=== PATIENT | female | born 1985 | race Caucasian/White ===

== ENCOUNTER → 2019-03-27 | Outpatient (CLI) | payer BC | LOC: RAD 18:05 | PROVIDERS: ATTEND Nurse Practitioner Family | DX: M54.31 Sciatica, right side (principal); R10.2 Pelvic and perineal pain; W18.39XA Other fall on same level, initial encounter; Z53.8 Procedure and treatment not carried out for other reasons ==

== ENCOUNTER → 2019-03-28 | Outpatient (CLI) | payer BC ==
--- NOTE | 2019-03-28 12:03 | Diagnostic Imaging Report ---
INDICATION: Pain in low back, right-sided sciatica due to an injury. TECHNIQUE: AP, Lateral and Spot imaging of the lumbar spine CORRELATION STUDY: None FINDINGS: The lumbar spinal curvature and alignment are within normal limits. Vertebral body heights and disc spaces are maintained. No fracture or malalignment is seen. IMPRESSION: No radiographic evidence for acute bony abnormality of the lumbar spine. Dictated by: Dictated on workstation # [id number]
--- NOTE | 2019-03-28 12:32 | Diagnostic Imaging Report ---
EXAMINATION: Pelvis at 11:50 a.m. INDICATION: Pelvic pain. A single AP view of the pelvis was obtained. There are no prior studies available for comparison. FINDINGS: There is no fracture, dislocation, or acute bony abnormality evident. There is perhaps mild deformity of the pubic symphysis on the left. This could be a sequela of previous trauma. Correlation with the patient's history would be recommended. The hip and sacroiliac joints are well maintained. The soft tissues are unremarkable. IMPRESSION: 1. There is no evidence for an acute bony abnormality. 2. There is a question of prior trauma to the pubic symphysis on the left. Clinical followup is recommended. Dictated by: Dictated on workstation # [id number]
== END ==
LOC: RAD FS 11:28
PROVIDERS: ATTEND Nurse Practitioner Family
DX: S39.92XA Unspecified injury of lower back, initial encounter (principal); R10.2 Pelvic and perineal pain; W18.39XA Other fall on same level, initial encounter
CPT/HCPCS: 72100; 72170

== ENCOUNTER → 2019-04-03 | Outpatient (CLI) | payer BC ==
--- NOTE | 2019-04-03 16:38 | Diagnostic Imaging Report ---
PROCEDURE: MRI lumbar spine. TECHNIQUE: Multiplanar, multisequence MRI of the lumbar spine was performed without contrast. INDICATION: Back pain. FINDINGS: The alignment of the lumbar spine is normal. The vertebral body heights are well maintained. There is no spondylolysis or spondylolisthesis. No fractures are identified. Conus medullaris is seen at L1 and is normal in appearance. All of the lumbar discs are normal in height, signal intensity, and morphology. There is no focal disc extrusion or evidence of high-grade spinal stenosis. There is a heterogeneous lesion in the right iliac bone which is incompletely visualized on this exam. The aorta is nonaneurysmal. Kidneys are normal in appearance IMPRESSION: Heterogeneous marrow-replacing lesion in the medial aspect of the right iliac bone which is incompletely visualized on this exam. This measures approximately 4.9 x 1.8 cm. Please correlate with the formal MRI pelvis which is also done on the same date. Unremarkable MRI lumbar spine. Dictated by: Dictated on workstation # [id number]
--- NOTE | 2019-04-03 20:38 | Diagnostic Imaging Report ---
EXAMINATION: Magnetic resonance imaging of the pelvis and bilateral hips without contrast DATE: April 03, 2019. COMPARISON: Radiograph of the pelvis, March 28, 2019. INDICATION: 33-year-old female, low back, pelvic and right leg pain. History of recent injury. TECHNIQUE: Magnetic Resonance Imaging sequences were performed of the pelvis and bilateral hips without contrast. TENDONS AND MUSCLES: The gluteus maxx muscles and their origins and insertions are intact, bilaterally. The tendons and muscles of the greater trochanter - gluteus minimus, piriformis and gluteus medius - are intact, bilaterally. Both common hamstring attachments on the ischial tuberosities are intact and the extensor muscles of the thigh are intact. The visualized portions of the flexors and adductor muscles of the thigh and their attachments on the pelvis and hips are intact. Both iliopsoas and iliacus muscles are intact. The bilateral iliopsoas tendons are intact. The piriformis muscles are symmetric in size and unremarkable in signal. HIPS AND SACROILIAC JOINTS: The contours of the femoral heads and acetabuli are smooth and symmetric. There is no hip joint effusion. There is no identified fluid-filled labral tear or paralabral cyst. The sacroiliac joints are unremarkable. LUMBAR SPINE: The visible portions of the lumbar spine are unremarkable on limited assessment. BONE: There is a T1 hypointense and T2 hyperintense lesion involving the right iliac bone with extension into the adjacent soft tissues which measures 4.6 x 1.9 x 4.8 cm in size. There are additional more T2 hyperintense well-demarcated lesions involving the upper aspect of the right iliac bone with the lesion on axial T2 fat saturation sequence image 2 measuring 1.4 x 0.6 x 0.8 cm in size and the additional lesion on axial T2 fat saturation sequence image 4, measuring 2.0 x 0.7 x 1.0 cm in size. There is no adjacent marrow edema. There is no acute fracture. There is no evidence of osteonecrosis. BURSAE AND SOFT TISSUES: The bursae and soft tissues surrounding the pelvis and hips are within normal limits. IMPRESSION: 1. Bone lesion of the right iliac bone with associated extension into the soft tissues measuring 4.6 x 1.9 x 4.8 cm in size. This is concerning for potential malignancy, metastatic disease or myeloma. 2. Additional T2 hyperintense lesions involving the right iliac bone without clear soft tissue extension of these lesions. These are indeterminant. 3. Additional musculoskeletal evaluation at the level of the pelvis and bilateral hips is unremarkable. 4. For further evaluation of the bone lesions of the right iliac bone, pre and post contrast MRI and/or CT pelvis without contrast is recommended for further evaluation. Dictated by: Dictated on workstation # [id number]
== END ==
LOC: RAD 12:22
PROVIDERS: ATTEND Nurse Practitioner Family
DX: M89.9 Disorder of bone, unspecified (principal); M54.31 Sciatica, right side; R01.1 Cardiac murmur, unspecified; W18.39XA Other fall on same level, initial encounter
CPT/HCPCS: 72148; 72195

== ENCOUNTER → 2019-04-07 | Outpatient (CLI) | payer BC ==
--- NOTE | 2019-04-07 10:34 | Diagnostic Imaging Report ---
PROCEDURE: CT lumbar spine without contrast. TECHNIQUE: Multiple contiguous axial images were obtained through the lumbar spine without the use of intravenous contrast. Sagittal and coronal reformations were then performed. Auto Exposure Controls were utilized during the CT exam to meet ALARA standards for radiation dose reduction. INDICATION: A right iliac lesion noted on recent MRI. This study is performed for further evaluation. FINDINGS: Curvature and alignment of the lumbar spine is normal. Vertebral body heights are maintained. Disc spaces are preserved. No acute fracture is seen. The right iliac bone lesion is only partially included on this study. Please see dedicated CT pelvis exam for further characterization. Visualized sacrum is unremarkable. No paraspinous mass is detected. IMPRESSION: Unremarkable CT of the lumbar spine. No acute bony abnormality is detected. The marrow replacing lesion in the right iliac bone noted on recent MRI is only minimally included on this exam. Please see dedicated CT pelvis report for further characterization. Dictated by: Dictated on workstation # [id number]
--- NOTE | 2019-04-07 10:50 | Diagnostic Imaging Report ---
PROCEDURE: CT pelvis without contrast. TECHNIQUE: Multiple contiguous axial images were obtained through the pelvis without the use of intravenous contrast. Sagittal and coronal reformations were performed. Auto Exposure Controls were utilized during the CT exam to meet ALARA standards for radiation dose reduction. DATE: April 07, 2019. INDICATION: 33-year-old female, evaluation of iliac bone lesion seen on recent MRI. History of low back, pelvic, and right leg pain. COMPARISON: MRI pelvis April 03, 2019. Pelvic radiograph March 28, 2019. FINDINGS: Involving the superior aspect of the right iliac bone on axial image 11 and adjacent sequential images, there is a lytic bone lesion which measures 4.9 x 2.3 cm in axial extent and has a craniocaudal extent of 4.5 cm. There is cortical expansion and thinning with areas of loss of the normal lateral cortex of the right iliac bone at the level of the lesion. There is internal soft tissue attenuation. There is no chondroid or osseous or groundglass matrix. There is no pathologic fracture. The additional previously noted T2 hyperintense lesions of the right iliac bone on recent MRI are much more difficult to appreciate on CT although do appear to be visualized and unchanged in size on axial image 8. These lesions do not demonstrate cortical expansion or breakthrough. There is no identified acute fracture. There are sutures noted in the left pelvis. There is no identified free pelvic fluid. There is a moderate amount of stool in the right colon. There is no identified abnormally enlarged lymph node in the pelvis specifically meeting CT size criteria for adenopathy. The hip joints are unremarkable in appearance. IMPRESSION: 1. Limited lesion of the right superior iliac bone measuring 4.9 x 2.3 x 4.5 cm with cortical expansion and areas of loss of the lateral cortex of the right iliac bone at the level of the bone lesion which does have soft tissue extension. There is no internal chondroid, osteoid, or groundglass matrix. This lesion is nonspecific. Differential diagnostic considerations at this time would include metastatic disease, myeloma, or potentially a benign bone lesion or primary malignant lesion of bone. Orthopedic oncologic consultation and biopsy for definitive diagnosis is recommended. 2. Additional T2 hyperintense right iliac bone lesions better seen on prior MRI are not overtly aggressive in appearance although are still indeterminate. Dictated by: Dictated on workstation # [id number]
== END ==
LOC: RAD FS 09:46
PROVIDERS: ATTEND Nurse Practitioner Family
DX: M89.8X8 Other specified disorders of bone, other site (principal); R22.41 Localized swelling, mass and lump, right lower limb; R10.2 Pelvic and perineal pain; M54.41 Lumbago with sciatica, right side; W18.39XD Other fall on same level, subsequent encounter; R01.1 Cardiac murmur, unspecified
CPT/HCPCS: 72131; 72192

== ENCOUNTER 2019-09-07 21:45 | Observation (INO) | payer BC ==
[~2019-09-07] VITALS: Ht 162.6 cm; Wt 50.0 kg
--- NOTE | 2019-09-07 23:07 | ED EENT ---
History of Present Illness General Chief Complaint: Eye Problems Stated Complaint: BLATERAL EYE PROBLEM Nursing Triage Note: PT AMBULATE TO ROOM FS02 WITH C/O RIGHT EYE INFECTION. PT STATES SHE WAS SEEN AT HER EYE DR AND GIVEN IM INJECTION ABX AND PRESCRIPTION. PT REPORTS SHE THINGS THE INFECTION IS GETTING WORSE AND IS MOVING INTO HER SINUSES. Source: patient History of Present Illness Date Seen by Provider: Sep 07, 2019 Time Seen by Provider: 23:06 Initial Comments 34 yo F presenting with complaint of increasing pain and swelling with erythema to right eyelids and face. She started with this on and it has progressed since then. She was seen in clinic and started on antibiotics for eyelid infection. Then she saw Dr. Nina for optometry. Today she was seen with urgent care and they gave her a antibiotic shot this morning. Despite the Keflex and the shot this morning she feels the redness/swelling and pain has progressed. It is getting more swollen and she feels like she has increased pain extending down more towards her sinuses even now. The redness which started just on her right eye now has a small swollen spot on her left thigh on the lower eyelid. She states that she has had something similar in the past that required her to have IV antibiotics and be admitted because she wasn't responding to the oral antibiotics. She was concerned that she would need IV antibiotics again since it seems to be worsening despite taking keflex for over 3 days and not improving, but worsening instead. She also is concerned that maybe she might have MRSA or staph infection because she recently had a hip surgery and is going through physical therapy. It was shortly after physical therapy when she noticed the redness, pain and swelling to her right eyelid. She denies having any fever or chills. She just feels like she has increasing pain and pressure especially around the right eye and the sinuses Allergies and Home Medications Allergies Coded Allergies: cefaclor (Unverified Allergy, Severe, 09/08/19) severe bruising all over her body. Has taken Cephalexin and Ceftriaxone without reaction. doxycycline (Unverified Allergy, Unknown, 09/07/19) iodine (Unverified Allergy, Unknown, 09/08/19) reports seizures after IV contrast dye for CT scan prochlorperazine (Unverified Allergy, Unknown, 09/07/19) promethazine (Unverified Allergy, Unknown, 09/07/19) tramadol (Unverified Allergy, Unknown, 09/07/19) Patient Home Medication List Home Medication List Reviewed: Yes Review of Systems Review of Systems Constitutional: No chills, No fever; malaise Eyes: Denies Blurred Vision, Denies Drainage, Denies Decreased Acuity, Denies Foreign Body Sensation; Inflammation (to right eyelids with swelling, redness and pain), Pain (right eyelids); Denies Photophobia, Denies Vision Changes Ears: No Symptoms Reported Nose: no symptoms reported Mouth: no symptoms reported Throat: no symptoms reported Respiratory: no symptoms reported Cardiovascular: no symptoms reported Gastrointestinal: no symptoms reported Musculoskeletal: no symptoms reported Skin: see HPI, change in color (erythema with swelling and pain spreading around the right eyelids and over the sinus on the right. 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 oz. kg; 18.00 BMI Method: General Appearance: mild distress, thin Eyes: right eye lid inflammation (with swelling, redness and pain to palpation); bilateral eye PERRL, bilateral eye EOMI Nose: sinus tenderness (right greater than left maxillary sinuses) Mouth/Throat: normal mouth inspection Neck: non-tender, full range of motion, supple, normal inspection Cardiovascular: normal peripheral pulses, regular rate, rhythm Respiratory: chest non-tender, lungs clear, normal breath sounds Skin: warm/dry, other (erythema to right eyelids and periorbital area with tenderness to palpation) Progress/Results/Core Measures Results/Orders Lab Results Laboratory Tests Test 09/07/19 23:43 Range/Units White Blood Count 7.1 4.3-11.0 10^3/uL Red Blood Count 5.25 4.35-5.85 10^6/uL Hemoglobin 14.2 11.5-16.0 G/DL Hematocrit 44 35-52 % Mean Corpuscular Volume 85 80-99 FL Mean Corpuscular Hemoglobin 27 25-34 PG Mean Corpuscular Hemoglobin Concent 32 32-36 G/DL Red Cell Distribution Width 12.1 10.0-14.5 % Platelet Count 231 130-400 10^3/uL Mean Platelet Volume 11.0 H 7.4-10.4 FL Neutrophils (%) (Auto) 59 42-75 % Lymphocytes (%) (Auto) 31 12-44 % Monocytes (%) (Auto) 7 0-12 % Eosinophils (%) (Auto) 2 0-10 % Basophils (%) (Auto) 1 0-10 % Neutrophils # (Auto) 4.2 1.8-7.8 X 10^3 Lymphocytes # (Auto) 2.2 1.0-4.0 X 10^3 Monocytes # (Auto) 0.5 0.0-1.0 X 10^3 Eosinophils # (Auto) 0.1 0.0-0.3 10^3/uL Basophils # (Auto) 0.1 0.0-0.1 10^3/uL Sodium Level 141 135-145 MMOL/L Potassium Level 4.0 3.6-5.0 MMOL/L Chloride Level 100 98-107 MMOL/L Carbon Dioxide Level 27 21-32 MMOL/L Anion Gap 14 5-14 MMOL/L Blood Urea Nitrogen 8 7-18 MG/DL Creatinine 1.03 0.60-1.30 MG/DL Estimat Glomerular Filtration Rate > 60 BUN/Creatinine Ratio 8 Glucose Level 94 70-105 MG/DL Lactic Acid Level 0.96 0.50-2.00 MMOL/L Calcium Level 9.8 8.5-10.1 MG/DL Corrected Calcium 8.5-10.1 MG/DL Total Bilirubin 0.2 0.1-1.0 MG/DL Aspartate Amino Transf (AST/SGOT) 23 5-34 U/L Alanine Aminotransferase (ALT/SGPT) 12 0-55 U/L Alkaline Phosphatase 77 40-136 U/L C-Reactive Protein 0.17 <0.50 MG/DL Total Protein 8.2 6.4-8.2 GM/DL Albumin 5.1 H 3.2-4.5 GM/DL My Orders Orders - CHARLA SIMMONS MD Comprehensive Metabolic Panel (09/07/19 23:39) Ed Iv/Invasive Line Start (09/07/19 23:39) Cbc With Automated Diff (09/07/19 23:39) Ct Maxillofacial Wo (09/07/19 23:39) Blood Culture (09/07/19 23:39) Lactic Acid Analyzer (09/07/19 23:39) Crp Fs (09/07/19 23:41) Vancomycin Injection (Vancomycin Injecti (09/07/19 23:41) Ketorolac Injection (Toradol Injection) (09/07/19 23:41) Vancomycin Injection (Vancomycin Injecti (09/07/19 23:45) Ns (Ivpb) (Sodium Chloride 0.9%) (09/07/19 23:46) Vital Signs/I&O 09/07/19 22:01 Temp 37.0 Pulse 95 Resp 14 B/P (MAP) 111/48 (69) O2 Delivery Room Air Blood Pressure Mean: 69 Progress Progress Note #1: Progress Note This does not appear to be a periorbital cellulitis on exam but with her complaint of worsening pain and swelling despite antibiotic will check labs with lactic acid and perform CT scan to evaluate for fluid collection or sinusitis extension of infection or disease. Try a dose of toradol for pain and obtain blood cultures with lactic acid for further evaluation for possible sepsis vs worsening infection despite antibiotics. Progress Note #2: Progress Note Labs all appear stable without elevation of WBC count. No left shift on differential. Chemistry is stable with normal Lactic acid, CRP. CT scan came back showing mild right preseptal soft tissue swelling with possible preseptal cellulitis without post septal extension. Since she is failing out patient treatment and has worsened on oral antibiotics and she has recent hospital stay with surgery and risk for MRSA will check about possible admit for IV antibiotics until showing improvement. Progress Note #3: Progress Note d/w Dr. Fabian for hospitalist service and he accepted for admit. 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 Diagnostic Imaging Diagonstic Imaging: CT Plain Films/CT/US/NM/MRI: facial bones Comments Impression: Mild Right Preseptal soft tissue swelling, possible preseptal cellulitis without post septal extension. Reviewed: Reviewed [facility] Study Departure Communication (Admissions) Time/Spoke to Admitting Phy: 01:[address] Fabian for the hospitalist service since the patient follows with Dr. Phillip and is unassigned for the purposes of [facility]. Since she has failed outpatient oral therapy and has worsening symptoms will admit for IV antibiotics while she still just has preseptal cellulitis and try to avoid her having further worsening symptoms into a periorbital cellulitis. Based on recommendations from the online reference up-to-date will give IV vancomycin and ceftriaxone. Impression Primary Impression: Preseptal cellulitis of right eye Additional Impression: Failure of outpatient treatment Disposition: ADMITTED INPATIENT Condition: Stable Admissions Decision to Admit Reason: Admit from ER (General) Decision to Admit/Date: Sep 08, 2019 Time/Decision to Admit Time: 01:42 Departure-Patient Inst. Referrals: NO,LOCAL PHYSICIAN (PCP/Family) Primary Care Physician Images Head/Face 1 - Cellulitis (erythema and swelling with tenderness to right eyelids and surrounding tissues), Swelling (mild), Tenderness CHARLA SIMMONS MD Sep 07, 2019 23:06
[2019-09-07] MEDS ORDERED: KETOROLAC 30 MG/ML VIAL IVP STA (23:41)
[2019-09-07] MEDS ORDERED: VANCOMYCIN INJECTION 1,000 MG in NS (IVPB) 250 ML IV STA (23:41)
[2019-09-07] MEDS ORDERED: VANCOMYCIN 1000 MG/VIAL ONE (23:45)
[2019-09-07] MEDS ORDERED: NS (IVPB) 250 ML ONE (23:46)
[2019-09-07 23:52] LABS: BASOPHILS # (AUTO) 0.1 10^3/uL (0.0-0.1); BASOPHILS % (AUTO) 1 % (0-10); EOSINOPHILS # (AUTO) 0.1 10^3/uL (0.0-0.3); EOSINOPHILS % (AUTO) 2 % (0-10); HEMATOCRIT 44 % (35-52); HEMOGLOBIN 14.2 G/DL (11.5-16.0); LYMPHOCYTES # (AUTO) 2.2 X 10^3 (1.0-4.0); LYMPHOCYTES % (AUTO) 31 % (12-44); MEAN CORPUSCULAR HEMOGLOBIN 27 PG (25-34); MEAN CORPUSCULAR HGB CONC 32 G/DL (32-36); MEAN CORPUSCULAR VOLUME 85 FL (80-99); MONOCYTES # (AUTO) 0.5 X 10^3 (0.0-1.0); MONOCYTES % (AUTO) 7 % (0-12); NEUTROPHILS # (AUTO) 4.2 X 10^3 (1.8-7.8); NEUTROPHILS % (AUTO) 59 % (42-75); PLATELET COUNT 231 10^3/uL (130-400); RED CELL DISTRIBUTION WIDTH 12.1 % (10.0-14.5); WHITE BLOOD COUNT 7.1 10^3/uL (4.3-11.0)
[2019-09-08 00:12] LABS: BUN/CREATININE RATIO 8; CARBON DIOXIDE 27 MMOL/L (21-32); CHLORIDE 100 MMOL/L (98-107); CREATININE SERUM 1.03 MG/DL (0.60-1.30); GFR ESTIMATED > 60; SODIUM 141 MMOL/L (135-145)
[2019-09-08 00:13] LABS: ALANINE AMINOTRANSFERASE 12 U/L (0-55); ALBUMIN 5.1 GM/DL (3.2-4.5); ALKALINE PHOSPHATASE 77 U/L (40-136); BILIRUBIN,TOTAL 0.2 MG/DL (0.1-1.0); CALCIUM 9.8 MG/DL (8.5-10.1); GLUCOSE 94 MG/DL (70-105); TOTAL PROTEIN 8.2 GM/DL (6.4-8.2)
[2019-09-08 03:25] VITALS: BP 100/55
--- NOTE | 2019-09-08 03:25 | NUR ---
GERARDO WILLIAM admitted to room 409-1, with an admitting diagnosis of CELLULITIS OF FACE, on 09/08/19 from ED via EMS, accompanied by EMS STAFF. GERARDO WILLIAM introduced to surroundings, call light, bed controls, phone, TV, temperature control, lights, meal times, smoking policy, visitor policy, side rail policy, bathrooms and showers. Patient Rights given to patient in the handbook. GERARDO WILLIAM verbalizes understanding that [facility] is not responsible for the loss or damage to any personal effects or valuables that are kept in the patients posession during their hospitalization. Patient Care Plan wAS discussed with the PT. GERARDO WILLIAM verbalizes understanding of Interdisciplinary Patient Education. Patient and/or family were informed about the Rapid Response Team and its purpose.
--- NOTE | 2019-09-08 06:22 | Diagnostic Imaging Report ---
PROCEDURE: CT maxillofacial without contrast. TECHNIQUE: Multiple contiguous axial images were obtained through the facial bones without the use of intravenous contrast. Auto Exposure Controls were utilized during the CT exam to meet ALARA standards for radiation dose reduction. INDICATION: Eye infection There is edema and/or inflammation involving the preseptal right orbit. The globes appear to be intact and there is no evidence of post septal inflammation or fluid collection. There is no evidence of bone destruction. The visualized paranasal sinuses are clear apart from probable mucus retention cyst or polyp in the floor of the left maxillary sinus. There is no paranasal sinus air-fluid level. Temporomandibular joints are unremarkable. IMPRESSION: Preseptal right orbital cellulitis without evidence of intra-ocular or post septal extension. Otherwise, there is a small mucous retention cyst or polyp in the left maxillary sinus without other complicating feature identified. Dictated by: Dictated on workstation # [id number]
--- NOTE | 2019-09-08 07:13 | NUR ---
PTD VANCOMYCIN LABS: SCR 1.03 WT 50KG PLAN: VANCOMYCIN 1 GRAM GIVEN IN ED 09/07 @ 2350, WILL START 15MG/KG IV Q8HRS (750MG) NEXT DOSE DUE NOW, PLAN TO CHECK A TROUGH LEVEL ON 09/09 @ 0500.
[2019-09-08 07:35] VITALS: BP 91/52
[2019-09-08] MEDS: VANCOMYCIN 750 MG/NS 250 ML IVPB IV SCH ×6 (08:15→22:01)
[2019-09-08] MEDS: cefTRIAXone 2,000 MG/SWFI 20 ML IV PUSH IV SCH ×2 (08:16)
[2019-09-08] MEDS ORDERED: IBUP-2055 PO (08:18)
[2019-09-08] MEDS ORDERED: CEPH500T PO (08:18)
[2019-09-08] MEDS ORDERED: CYAN250010 PO (08:18)
[2019-09-08] MEDS: KETOROLAC 15 MG/ML VIAL IVP PRN ×3 (08:36→22:01)
--- NOTE | 2019-09-08 08:46 | NUR ---
SPOKE WITH THE PT WELL CALLING [facility] IN [facility] TO COMPLETE THE MED REC. THE PT SAYS SHE DOES NOT TAKE ANY PRESCRIPTION MEDICATION, EXCEPT THE ANTIBIOTIC SHE WAS PRESCRIBED ON Sunday09-05-2019. SHE RECEIVED CEPHALEXIN #12 6 D/S- SHE WAS PRESCRIBED #20 HOWEVER THE PT WAS PAYING [facility] AND JUST GOT A SHORT TERM SUPPLY OTC MEDS: IBUPROFEN VIT B12
[2019-09-08 11:19] VITALS: BP 95/56
--- NOTE | 2019-09-08 11:39 | History & Physical-Hospitalist ---
[facility] 09/08/19 1139: History of Present Illness HPI/Chief Complaint Rsoa is a 34 year old female that presented to [facility] due to pain on the right side of her face and into her eye. She states the pain started last and continue to get worse and was really bad on Sunday. She was seen in clinic and the urgent care for this and was provided antibiotics which have not helped. Currently her pain is a 5-6/10 and she describes it as constant. The pain radiates to the forehead and to the right ear. She states the medication for pain has helped and nothing that she knows makes it worse. She states she had a infection doue to wisdom tooth removal in hali past but nothing like this before. Blood cultures are pending and CT shows Preseptal right orbital cellulitis without evidence of intraocular or post septal extension. Source: patient Date Seen 09/08/19 Attending Physician Dinah Fabian MD PCP No,Local Physician Referring Physician Date of Admission Sep 08, 2019 at 02:24 Home Medications & Allergies Home Medications Reviewed patient Home Medication Reconciliation performed by pharmacy medication reconciliations brewing technician and/or nursing. Patients Allergies have been reviewed. Allergies Allergies Coded Allergies cefaclor (Unverified Allergy, Severe, 09/08/19) severe bruising all over her body. Has taken Cephalexin and Ceftriaxone without reaction. doxycycline (Unverified Allergy, Unknown, 09/07/19) iodine (Unverified Allergy, Unknown, 09/08/19) reports seizures after IV contrast dye for CT scan prochlorperazine (Unverified Allergy, Unknown, 09/07/19) promethazine (Unverified Allergy, Unknown, 09/07/19) tramadol (Unverified Allergy, Unknown, 09/07/19) Past Myklksf-Wjaxjd-Cavgqo Hx Past Med/Social Hx: Reviewed Nursing Past Med/Soc Hx Patient Social History Alcohol Use: Denies Use Recreational Drug Use: No Smoking Status: Never a Smoker 2nd Hand Smoke Exposure: No Recent Foreign Travel: No Contact w/other who traveled: No Recent Hopitalizations: No Recent Infectious Disease Expo: No Immunizations Up To Date Date of Pneumonia Vaccine: Aug 10, 2012 Seasonal Allergies Seasonal Allergies: No Past Medical History Surgeries: Hysterectomy, 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) Reproductive: Yes Female Reproductive Disorders: Endometriosis Hysterectomy (due to Endometriosis) History of Blood Disorders: No Review of Systems Constitutional: no symptoms reported EENTM: eye pain (right side), nose pain Respiratory: no symptoms reported Cardiovascular: no symptoms reported Gastrointestinal: no symptoms reported Genitourinary: no symptoms reported Musculoskeletal: no symptoms reported Skin: other (Erythema of the right eye ) Psychiatric/Neurological: No Symptoms Reported Physical Exam Physical Exam Vital Signs Vital Signs - First Documented 09/07/19 09/08/19 22:01 02:40 Temp 37.0 Pulse 95 Resp 14 B/P (MAP) 111/48 (69) Pulse Ox 100 O2 Delivery Room Air Capillary Refill : Less Than 3 SecondsLess Than 3 Seconds Height, Weight, BMI Height: '" Weight: lbs. oz. kg; 18.91 BMI Method: General Appearance: No Apparent Distress, WD/WN Eyes: Right Eye Lid Inflammation, Right Eye Photophobia; Bilateral Eye PERRL, Bilateral Eye EOMI HEENT: PERRL/EOMI Neck: Full Range of Motion, Non Tender, Supple Respiratory: Chest Non Tender, No Accessory Muscle Use, No Respiratory Distress Cardiovascular: Regular Rate, Rhythm, No Edema, Normal Peripheral Pulses Gastrointestinal: Normal Bowel Sounds, Non Tender; No Distended, No Guarding Extremity: Normal Capillary Refill, No Calf Tenderness, No Pedal Edema Neurologic/Psychiatric: Alert, Oriented x3, Normal Mood/Affect, carpenter mold II-XII Norm as Tested Skin: Normal Color, Warm/Dry Lymphatic: No Adenopathy Results Results/Procedures Labs Laboratory Tests 09/07/19 23:43 Patient resulted labs reviewed. Assessment/Plan Admission Diagnosis Preseptal Right Orbital Cellulitis - Outpatient therapy failed - Ceftriaxone 2g Q24hrs - Vancomycin 750mg Q8hrs - Vancomycin trough pending - blood cultures pending - Continue pain management Patient failed out patient therapy and infection has progressed. Will continue to monitor patients infection on current regimen. Waiting for blood cultures. Pain is being managed on Ketorlac. Assessment and Plan Preseptal Right Orbital Cellulitis - Outpatient therapy failed - Ceftriaxone 2g Q24hrs IV - Vancomycin 750mg Q8hrs IV - Vancomycin trough pending - blood cultures pending - Continue pain management Patient failed out patient therapy and infection has progressed. Will continue to monitor patients infection on current regimen. Waiting for blood cultures. Pain is being managed on Ketorlac 15mg Q6H PRN . Clinical Quality Measures DVT/VTE Risk/Contraindication: Risk Factor Score Per Nursin RFS Level Per Nursing on Admit: 1=Low/No VTE PPX KIMBERLEE HO MD 09/08/19 8798: History of Present Illness Time Seen by a Provider: 11:30 Past Rafniye-Qrfjbg-Gjkvek Hx Past Med/Social Hx: Reviewed Nursing Past Med/Soc Hx Patient Social History Alcohol Use: Denies Use Recreational Drug Use: No Smoking Status: Never a Smoker Past Medical History Hysterectomy Family History Reviewed Nursing Family Hx No Pertinent Family Hx Assessment/Plan Admission Diagnosis Will continue on current antibiotics, Vanc/Rocephin. Responding but slowly. Denies previous episodes. Will continue inpatient status until at least blood cultures preliminarily are negative. Admission Status: Inpatient Order (span 2 midnights) Reason for Inpatient Admission: IV abx, failed outpatient management Diagnosis/Problems Diagnosis/Problems (1) Preseptal cellulitis of right eye Status: Acute (2) Failure of outpatient treatment Status: Acute Supervisory-Addendum Brief Verification & Attestation Participated in pt care: history, MDM, physical Personally performed: exam, history, MDM, supervision of care Care discussed with: Medical Student Procedures: n/a Results interpretation: Verified all documentation Verification and Attestation of Medical Student E/M Service A medical student performed and documented this service in my presence. I reviewed and verified all information documented by the medical student and made modifications to such information, when appropriate. I personally performed the physical exam and medical decision making. Kimberlee Ho, Sep 08, 2019,16:47 [facility] Sep 08, 2019 11:39 KIMBERLEE HO MD Sep 08, 2019 16:48
[2019-09-08] MEDS ORDERED: VANCOMYCIN 1 GM/NS 250 ML IVPB IV SCH ×2 (11:45)
[2019-09-08 16:30] VITALS: BP 93/51
[2019-09-08 19:55] VITALS: BP 88/52
[2019-09-09] VITALS: BP 86/48
[2019-09-09 04:00] VITALS: BP 92/58
[2019-09-09] MEDS ORDERED: TROUGH ORDER-PHARMACY XX ONE (05:00)
[2019-09-09 05:44] LABS: BASOPHILS % (AUTO) 1 % (0-10); EOSINOPHILS # (AUTO) 0.1 10^3/uL (0.0-0.3); EOSINOPHILS % (AUTO) 3 % (0-10); HEMATOCRIT 35 % (35-52); HEMOGLOBIN 10.9 G/DL (11.5-16.0); LYMPHOCYTES # (AUTO) 2.2 X 10^3 (1.0-4.0); LYMPHOCYTES % (AUTO) 49 % (12-44); MEAN CORPUSCULAR HEMOGLOBIN 26 PG (25-34); MEAN CORPUSCULAR HGB CONC 32 G/DL (32-36); MEAN CORPUSCULAR VOLUME 84 FL (80-99); MEAN PLATELET VOLUME 11.1 FL (7.4-10.4); MONOCYTES # (AUTO) 0.4 X 10^3 (0.0-1.0); MONOCYTES % (AUTO) 9 % (0-12); NEUTROPHILS # (AUTO) 1.7 X 10^3 (1.8-7.8); NEUTROPHILS % (AUTO) 38 % (42-75); PLATELET COUNT 182 10^3/uL (130-400); RED CELL DISTRIBUTION WIDTH 12.3 % (10.0-14.5); WHITE BLOOD COUNT 4.4 10^3/uL (4.3-11.0)
[2019-09-09 05:56] LABS: ALANINE AMINOTRANSFERASE 8 U/L (0-55); ALBUMIN 3.7 GM/DL (3.2-4.5); ALKALINE PHOSPHATASE 50 U/L (40-136); BILIRUBIN,TOTAL 0.3 MG/DL (0.1-1.0); BUN/CREATININE RATIO 10; CALCIUM 8.9 MG/DL (8.5-10.1); CARBON DIOXIDE 22 MMOL/L (21-32); CHLORIDE 112 MMOL/L (98-107); CREATININE SERUM 0.94 MG/DL (0.60-1.30); GFR ESTIMATED > 60; GLUCOSE 88 MG/DL (70-105); POTASSIUM 4.3 MMOL/L (3.6-5.0); SODIUM 143 MMOL/L (135-145); TOTAL PROTEIN 5.6 GM/DL (6.4-8.2)
[2019-09-09 06:05] LABS: VANCOMYCIN,TROUGH 26.4 UG/ML (10.0-20.0)
[2019-09-09] MEDS: VANCOMYCIN 750 MG/NS 250 ML IVPB IV SCH ×2 (06:17)
--- NOTE | 2019-09-09 07:02 | NUR ---
PTD VANCOMYCIN LABS: 0.94 VANCOMYCIN TROUGH 09/09 @ 0522 26.4 PLAN: HOLD VANCOMYCIN, RESTART TONIGHT AT 2099 AND CHANGE FREQUENCY TO BID (750MG IV @). RECHECK A LEVEL ON 09/11/19.
[2019-09-09 08:00] VITALS: BP 82/50
[2019-09-09] MEDS: cefTRIAXone 2,000 MG/SWFI 20 ML IV PUSH IV SCH ×2 (08:10)
[2019-09-09] MEDS: KETOROLAC 15 MG/ML VIAL IVP PRN (11:51)
[2019-09-09 12:00] VITALS: BP 90/55
[2019-09-09] MEDS ORDERED: LACTOBACILLUS ACIDOPHILUS (PROBIOTIC) CAPSULE PO SCH (12:00)
[2019-09-09] MEDS ORDERED: VANCOMYCIN 750 MG/NS 250 ML IVPB IV NR ×2 (12:29)
--- NOTE | 2019-09-09 12:51 | Discharge Summary ---
[facility] 09/09/19 1251: Diagnosis/Chief Complaint Date of Admission Sep 08, 2019 at 02:24 Date of Discharge Admission Diagnosis Will continue on current antibiotics, Vanc/Rocephin. Responding but slowly. Denies previous episodes. Will continue inpatient status until at least blood cultures preliminarily are negative. Primary Care No,Local Physician Discharge Diagnosis (1) Preseptal cellulitis of right eye Status: Acute (2) Failure of outpatient treatment Status: Acute Discharge Summary Discharge Physical Exam Allergies: Coded Allergies: cefaclor (Unverified Allergy, Severe, 09/08/19) severe bruising all over her body. Has taken Cephalexin and Ceftriaxone without reaction. doxycycline (Unverified Allergy, Unknown, 09/07/19) iodine (Unverified Allergy, Unknown, 09/08/19) reports seizures after IV contrast dye for CT scan prochlorperazine (Unverified Allergy, Unknown, 09/07/19) promethazine (Unverified Allergy, Unknown, 09/07/19) tramadol (Unverified Allergy, Unknown, 09/07/19) Vitals & I&Os Vital Signs Date Time Temp Pulse Resp B/P (MAP) Pulse Ox O2 Delivery O2 Flow Rate FiO2 09/09/19 12:00 37.4 72 16 90/55 (67) 98 Room Air General Appearance: No Apparent Distress, Thin HEENT: Photophobia (Improved ), Other (Right Ocular inflammation adn erythema has improved. Pt is able to open her eye more and has decreased pain with EOM. ) Respiratory: Chest Non Tender, Normal Breath Sounds, No Accessory Muscle Use, No Respiratory Distress Cardiovascular: Regular Rate, Rhythm, No Edema, Normal Peripheral Pulses Gastrointestinal: Normal Bowel Sounds, Non Tender, Soft; No Distended, No Guarding Extremity: Normal Capillary Refill, No Calf Tenderness, No Pedal Edema Skin: Normal Color, Warm/Dry Neurologic/Psychiatric: Alert, Oriented x3, Normal Mood/Affect, silo man II-XII Norm as Tested Hospital Course Was the Problem List Reviewed?: Yes Rosa was admitted to [facility] on 09/07/19 and is being discharged today 09/09/19. She was admitted for Preseptal Orbital Cellulitis due to failed outpatient treatment. No pertinent PMH. She was under the care of Dr. Ho hospitalist. While at [facility] she received a CT of the head and sinus showed preseptal orbital cellulitis. She had negative blood cultures and no pertinent lab findings. Exam findings included a swollen, erythematous. She also had constant pain in the right sinus to the temporal portion and upper eyelid on the right side. There was pain with extraocular motion, decreased vision due to eye swelling and moderate to severe pain. Patient also had photophobia. The patient was started on IV vancomycin and IV Ceftriaxone. Pain control was initiated. The patient improved on the aforementioned antibiotics regimen and erythema, swelling, pain, extraocular motion have all improved. The patient is in agreement for discharge today and she will be discharged today in stable condition. The patient will be switched to oral antibiotics. Followup information and antibiotics regimen is outlined in discharge instructions. The following information is only a summary of the PT admission at [facility] and is not all inclusive. Please review entire chart for more information. Labs (last 24 hrs) Laboratory Tests 09/09/19 05:22: White Blood Count 4.4, Red Blood Count 4.13L, Hemoglobin 10.9#L, Hematocrit 35, Mean Corpuscular Volume 84, Mean Corpuscular Hemoglobin 26, Mean Corpuscular Hemoglobin Concent 32, Red Cell Distribution Width 12.3, Platelet Count 182, Mean Platelet Volume 11.1H, Neutrophils (%) (Auto) 38L, Lymphocytes (%) (Auto) 49H, Monocytes (%) (Auto) 9, Eosinophils (%) (Auto) 3, Basophils (%) (Auto) 1, Neutrophils # (Auto) 1.7L, Lymphocytes # (Auto) 2.2, Monocytes # (Auto) 0.4, Eosinophils # (Auto) 0.1, Basophils # (Auto) 0.0, Sodium Level 143, Potassium Level 4.3, Chloride Level 112H, Carbon Dioxide Level 22, Anion Gap 9, Blood Urea Nitrogen 9, Creatinine 0.94, Estimat Glomerular Filtration Rate > 60, BUN/Creatinine Ratio 10, Glucose Level 88, Calcium Level 8.9, Corrected Calcium 9.1, Total Bilirubin 0.3, Aspartate Amino Transf (AST/SGOT) 15, Alanine Aminotransferase (ALT/SGPT) 8, Alkaline Phosphatase 50, Total Protein 5.6L, Albumin 3.7, Vancomycin Level Trough 26.4*H Microbiology 09/07/19 Blood Culture - Preliminary, Resulted No growth Patient resulted labs reviewed. Pending Labs Laboratory Tests 09/09/19 05:22: White Blood Count 4.4, Red Blood Count 4.13, Hemoglobin 10.9, Hematocrit 35, Mean Corpuscular Volume 84, Mean Corpuscular Hemoglobin 26, Mean Corpuscular Hemoglobin Concent 32, Red Cell Distribution Width 12.3, Platelet Count 182, Mean Platelet Volume 11.1, Neutrophils (%) (Auto) 38, Lymphocytes (%) (Auto) 49, Monocytes (%) (Auto) 9, Eosinophils (%) (Auto) 3, Basophils (%) (Auto) 1, Neutrophils # (Auto) 1.7, Lymphocytes # (Auto) 2.2, Monocytes # (Auto) 0.4, Eosinophils # (Auto) 0.1, Basophils # (Auto) 0.0, Sodium Level 143, Potassium Level 4.3, Chloride Level 112, Carbon Dioxide Level 22, Anion Gap 9, Blood Urea Nitrogen 9, Creatinine 0.94, Estimat Glomerular Filtration Rate > 60, BUN/Creatinine Ratio 10, Glucose Level 88, Calcium Level 8.9, Corrected Calcium 9.1, Total Bilirubin 0.3, Aspartate Amino Transf (AST/SGOT) 15, Alanine Ami notransferase (ALT/SGPT) 8, Alkaline Phosphatase 50, Total Protein 5.6, Albumin 3.7, Vancomycin Level Trough 26.4 Discharge Home Medications: Active Scripts Active Reported Cephalexin 500 Mg Tablet 500 Mg PO BID PICKED UP #12 (6 DAY SUPPLY) ON 09-05-2019 Vitamin B12 (Cyanocobalamin (Vitamin B-12)) 2,500 Mcg Tablet 2,500 Mcg PO DAILY Ibuprofen 200 Mg Tablet 400 Mg PO Q6H PRN Instructions to patient/family Please see electronic discharge instructions given to patient. Clinical Quality Measures DVT/VTE Risk/Contraindication: Risk Factor Score Per Nursin RFS Level Per Nursing on Admit: 1=Low/No VTE PPX KIMBERLEE HO MD 09/09/19 1343: Diagnosis/Chief Complaint Discharge Diagnosis Preseptal Cellulitis Discharge Summary Discharge Physical Exam Allergies: Coded Allergies: cefaclor (Unverified Allergy, Severe, 09/08/19) severe bruising all over her body. Has taken Cephalexin and Ceftriaxone without reaction. doxycycline (Unverified Allergy, Unknown, 09/07/19) iodine (Unverified Allergy, Unknown, 09/08/19) reports seizures after IV contrast dye for CT scan prochlorperazine (Unverified Allergy, Unknown, 09/07/19) promethazine (Unverified Allergy, Unknown, 09/07/19) tramadol (Unverified Allergy, Unknown, 09/07/19) Discussion & Recommendations Discharge Planning: >30 minutes discharge planning Supervisory-Addendum Brief Verification & Attestation Participated in pt care: history, MDM, physical Personally performed: exam, history, MDM, supervision of care Care discussed with: Medical Student Procedures: n/a Results interpretation: Verified all documentation Verification and Attestation of Medical Student E/M Service A medical student performed and documented this service in my presence. I reviewed and verified all information documented by the medical student and made modifications to such information, when appropriate. I personally performed the physical exam and medical decision making. Kimberlee Ho, Sep 09, 2019,13:43 [facility] Sep 09, 2019 12:51 KIMBERLEE HO MD Sep 09, 2019 13:43
[2019-09-09] MEDS ORDERED: LACT1CAP7 PO (13:04)
[2019-09-09] MEDS ORDERED: SULF1TAB35 PO (13:04)
--- NOTE | 2019-09-09 13:19 | Discharge Inst-Simple/Standard ---
Discharge Inst-Standard Reconcile Patient Problems Problems Reviewed?: Yes Discharge Medications New, Converted or Re-Newed RX: Transmitted to Pharmacy Patient Instructions/Follow Up Plan of Care/Instructions/FU: Please contineu to take your medications as written and follow up with your PCP. Activity as Tolerated: Yes Discharge Diet: No Restrictions Return to The Hospital For: Fever, worsening pain, swelling, if you feel you are getting worse. KIMBERLEE HARRIS MD Sep 09, 2019 13:19
[2019-09-09 15:11] VITALS: BP 90/55
[2019-09-09] MEDS ORDERED: VANCOMYCIN 750 MG/NS 250 ML IVPB IV SCH ×2 (21:00)
== END 2019-09-09 15:11 | disposition home or self-care (01) ==
LOC: EDUNIT# 21:45 → ER FS 21:48 → 4TH 09-08 02:24
PROVIDERS: ADMIT Internal Medicine; ATTEND Internal Medicine
DX: L03.213 Periorbital cellulitis (principal); Z88.8 Allergy status to other drugs, medicaments and biological substances; Z90.710 Acquired absence of both cervix and uterus
CPT/HCPCS: 36415; 70486; 80053; 80202; 83605; 85025; 86141; 87040; 96365; 96366; 96375; 96376; G0378

== ENCOUNTER → 2020-10-19 | Outpatient (CLI) | payer OTHER ==
[~2020-10-19] MED LIST: CEPH500T PO; CYAN250010 PO; IBUP-2473 PO; LACT1CAP7 PO; SULF1TAB35 PO
--- NOTE | 2020-10-19 14:49 | Diagnostic Imaging Report ---
PROCEDURE: CT abdomen and pelvis without contrast. TECHNIQUE: Multiple contiguous axial images were obtained through the abdomen and pelvis without the use of intravenous contrast. Auto Exposure Controls were utilized during the CT exam to meet ALARA standards for radiation dose reduction. DATE: October 19, 2020. COMPARISON: CT pelvis April 07, 2019. MRI pelvis April 03, 2019. INDICATION: 35-year-old female, abdominal pain and distention. FINDINGS: There are limitations for evaluation of the abdominal organs, neoplastic processes, abscess, and limited evaluation of the vasculature relating to the lack of intravenous contrast. The visualized portions of the lung bases are clear. The heart is not enlarged. There is no pericardial effusion. The liver is unremarkable in size and contour. The gallbladder is unremarkable. There is no intrahepatic or extrahepatic bile duct dilation. There is no gross dilation of the main pancreatic duct. Very limited noncontrast evaluation of the pancreatic parenchyma is without identified abnormality. The spleen is normal in size. The adrenal glands are unremarkable. Unremarkable appearance of the renal parenchyma. The urinary collecting systems are not distended. There is no identified renal or ureteral stone. The urinary bladder is unremarkable. The uterus is not seen and may be surgically absent. The intestinal tract is not distended. The appendix is unremarkable. There is no free intraperitoneal air. There is no drainable fluid collection. There is no free pelvic fluid. There are no identified abnormally enlarged lymph nodes in the abdomen or pelvis meeting CT size criteria for adenopathy. There is a sclerotic lesion in the right superior pubic ramus on axial image 73 measuring 5 mm in size which is most consistent with a benign bone island. There is also a tiny 2 to 3 mm benign bone island in the right femoral head. There is a deformity of the right iliac bone with high attenuation adjacent to the deformity which may be procedurally related. There is no identified aggressive bone destruction or concerning appearing periosteal reaction in this location or otherwise noted in the included field of view of imaging. IMPRESSION: 1. No identified acute abnormality in the abdomen or pelvis. 2. Procedural related changes of the right iliac bone without evidence of residual or recurrent neoplasm. Dictated by: Dictated on workstation # [id number]
== END ==
LOC: RAD 13:15
PROVIDERS: ATTEND Nurse Practitioner Family
DX: C49.22 Malignant neoplasm of connective and soft tissue of left lower limb, including hip (principal); K59.09 Other constipation; R10.84 Generalized abdominal pain; R19.6 Halitosis; R14.0 Abdominal distension (gaseous)
CPT/HCPCS: 74176